=== PATIENT | male | born 1935 ===

== ENCOUNTER 2022-02-15 08:51 | Emergency (ER) | payer MEDICARE, OTHER ==
[~2022-02-15] VITALS: Ht 198.1 cm; Wt 120.2 kg
[~2022-02-15 08:51] MED LIST: Colace100 MG PO; Magnesium Citr296 ML PO
[2022-02-15 09:50] LABS: Source, Urine Foley catheter
[2022-02-15 09:55] LABS: Appearance, Urine Clear (Clear); Bilirubin, Urine Neg (Neg); Blood, Urine 4+ (Neg); Color, Urine Yellow (P-Yellow); Glucose Qualitative, Urine Neg (Neg); Ketones, Urine Neg (Neg); Leukocyte Esterase, Urine 3+ (Neg); Nitrite, Urine Neg (Neg); Protein, Urine 2+ (Neg); Specific Gravity, Urine 1.015 (1.003-1.022); Urobilinogen, Urine NORM (Normal)
[2022-02-15] MEDS ORDERED: OXYCODONE-ACET1 EAC3 PO (10:13)
[2022-02-15] MEDS ORDERED: LOSARTAN POTAS100 M1 PO (10:25)
[2022-02-15] MEDS ORDERED: TAMS.4ER PO (10:25)
[2022-02-15 10:31] LABS: Bacteria Many /hpf; Squamous Epithelial Cells Few /hpf (Few); White Blood Cells, Urine TNTC /hpf (0-5)
[2022-02-15 10:32] LABS: Bun/Creatinine Ratio 21.1 (12.0-20.0); Calcium, Blood 8.9 mg/dL (8.5-10.1); Creatinine, Blood 1.33 mg/dL (0.60-1.20)
[2022-02-15 10:52] LABS: Transitional Epithelial Cells Few /hpf (0-Rare)
[2022-02-15] MEDS ORDERED: CEPH500 PO (11:26)
== END 2022-02-15 11:40 | disposition home or self-care (01) ==
LOC: ER 08:51
PROVIDERS: Emergency Medicine
DX: R33.9 Retention of urine, unspecified (principal); N39.0 Urinary tract infection, site not specified; I10 Essential (primary) hypertension; Z79.899 Other long term (current) drug therapy; Z87.891 Personal history of nicotine dependence
CPT/HCPCS: 36415; 51702; 51798; 80048; 81001; 87077; 87086; 87186; 96365-59; 99283-25; J0696

== ENCOUNTER 2022-02-20 10:59 | Emergency (ER) | payer MEDICARE, OTHER ==
[~2022-02-20] VITALS: Ht 195.6 cm; Wt 120.2 kg
[~2022-02-20 10:59] MED LIST changes: +CEPH500 PO; +LOSARTAN POTAS100 M1 PO; +OXYCODONE-ACET1 EAC3 PO; +TAMS.4ER PO
== END 2022-02-20 15:22 | disposition home or self-care (01) ==
LOC: ER 10:59
DX: T83.098A Other mechanical complication of other urinary catheter, initial encounter (principal); Z79.899 Other long term (current) drug therapy; G47.30 Sleep apnea, unspecified; I10 Essential (primary) hypertension; Z87.891 Personal history of nicotine dependence
CPT/HCPCS: 51798; 99283